=== PATIENT | female | born 1940 | race Two or more races ===

== ENCOUNTER 2022-11-13 10:45 | Inpatient (IN) | payer OTHER ==
[~2022-11-13] VITALS: Ht 172.7 cm; Wt 91.6 kg
[2022-11-13] MEDS ORDERED: dilTIAZem 25 MG/5 ML VIAL IV ONE (12:45)
[2022-11-13 12:52] LABS: Basophils # (auto) 0 10 ^3/uL (0-0.2); Basophils % (auto) 0.1 % (0.0-2.0); Eosinophils # (auto) 0 10 ^3/uL (0-0.8); Lymphocytes # (auto) 0.7 10 ^3/uL (0.4-5.4)
[2022-11-13 12:58] LABS: Hematocrit 36.2 % (36.0-46.0); Lymphocytes % (auto) 5.8 % (10.0-50.0); Mean Corpuscular Hemoglobin 27.2 pg (28.0-32.0); Mean Corpuscular Hgb Conc. 30.3 g/dL (32.0-36.0); Mean Corpuscular Volume 89.6 fL (80.0-100.0); Monocytes % (auto) 8.1 % (0.0-12.0); Neutrophils # (auto) 10.9 10 ^3/uL (1.6-8.6); Nucleated Red Blood Cells % 0.7 %; Red Blood Cells 4.04 10^6/uL (4.0-5.20); White Blood Cell 12.6 10^3/uL (4.4-10.8)
[2022-11-13] MEDS ORDERED: VANCOMYCIN 1GM/250ML 250 ML IV ONE (13:00)
[2022-11-13] MEDS ORDERED: LACTATED RINGER'S 1,000 ML IV ONE (13:00)
[2022-11-13] MEDS ORDERED: CEFEPIME 1GM/ 50ML 50 ML IV ONE (13:00)
[2022-11-13 13:03] LABS: Calcium 8.6 mg/dL (8.5-10.1); Potassium 4.9 mmol/L (3.5-5.1)
[2022-11-13 13:11] LABS: BUN/Creatinine Ratio 36.1 (10.0-20.0); Bilirubin, Total 1.5 mg/dL (0.2-1.0); Total Protein 6.4 g/dL (6.4-8.2)
[2022-11-13] MEDS ORDERED: ASPirin-EC 325mg tab PO ONE (13:15)
[2022-11-13 13:17] LABS: Red Cell Distribution Width 21.4 % (11.8-14.3)
[2022-11-13 13:53] LABS: Lactic Acid w/Reflex 2.9 mmol/L (0.4-2.0)
[2022-11-13] MEDS ORDERED: FUROSEMIDE 20 MG/2 ML VIAL IV ONE (15:00)
[2022-11-13] MEDS ORDERED: dilTIAZem 120MG ER CAP PO ONE ×2 (15:00→16:15)
[2022-11-13] MEDS ORDERED: IOHEXOL 350 MG/ML 100ML IJ ONE (15:05)
[2022-11-13] MEDS ORDERED: FUROSEMIDE 40 MG/4 ML VIAL IV ONE (15:30)
[2022-11-13] MEDS ORDERED: ENOXAPARIN SOD 100 MG/1 ML SYRINGE SC ONE (16:45)
[2022-11-13 17:15] LABS: Urine Bacteria MANY /hpf (None Seen); Urine Blood Negative /uL (Negative); Urine Mucus FEW (None Seen); Urine Specific Gravity 1.039 (1.001-1.035); Urine WBC 6 /hpf (0 - 5)
[2022-11-13] MEDS ORDERED: dilTIAZem 125mg/125ml BAG KIT 125 ML IV ONE (21:30)
[2022-11-13] MEDS ORDERED: HYDROcodone-ACET 5/325MG TAB PO PRN (21:30)
[2022-11-13] MEDS ORDERED: DOCUSATE SOD 100 MG CAP PO PRN (21:30)
[2022-11-13] MEDS ORDERED: VANCOMYCIN PER PHARMACY 0 MG IV SCH (21:30)
[2022-11-13] MEDS ORDERED: ACETAMINOPHEN 325 MG TAB PO PRN (21:30)
[2022-11-13] MEDS ORDERED: ONDANSETRON HCL 4 MG/2 ML VIAL IV PRN (21:30)
[2022-11-13] MEDS: SODIUM CHLOR 0.9% PF (SALINE LOCK) 10ML VIAL/SYR IV SCH (22:00)
[2022-11-13] MEDS: HEPARIN SODIUM (PORCINE) 5000 UNITS/ML 1ML VIAL SC SCH (23:40)
[2022-11-13] MEDS ORDERED: MORPHINE SULFATE INJ 2 MG/ml SYRG IV PRN (23:45)
[2022-11-13] MEDS ORDERED: NITROGLYCERIN 0.4 MG SL TAB SL PRN (23:45)
[2022-11-14] MEDS ORDERED: IBUPROFEN 400 MG TAB PO PRN (04:00)
[2022-11-14] MEDS ORDERED: APIX5TAB PO (04:20)
[2022-11-14] MEDS ORDERED: FUR20T PO (04:20)
[2022-11-14] MEDS ORDERED: CEPH500C PO (04:20)
[2022-11-14] MEDS ORDERED: HYDR-4072 PO (04:21)
[2022-11-14 05:00] VITALS: BP 98/65
[2022-11-14 05:47] LABS: Basophils # (auto) 0 10 ^3/uL (0-0.2); Basophils % (auto) 0.1 % (0.0-2.0); Eosinophils # (auto) 0 10 ^3/uL (0-0.8); Hemoglobin 10.6 g/dL (12.2-16.2); Lymphocytes # (auto) 0.4 10 ^3/uL (0.4-5.4); Lymphocytes % (auto) 2.5 % (10.0-50.0); Mean Corpuscular Hemoglobin 27.8 pg (28.0-32.0); Mean Corpuscular Hgb Conc. 31.1 g/dL (32.0-36.0); Mean Corpuscular Volume 89.4 fL (80.0-100.0); Monocytes # (auto) 0.9 10 ^3/uL (0-1.3); Monocytes % (auto) 5.4 % (0.0-12.0); Neutrophils # (auto) 14.7 10 ^3/uL (1.6-8.6); Nucleated Red Blood Cells % 0.4 %; White Blood Cell 15.9 10^3/uL (4.4-10.8)
[2022-11-14 06:01] LABS: Red Cell Distribution Width 20.8 % (11.8-14.3)
[2022-11-14 06:16] LABS: Albumin 1.6 g/dL (3.4-5.0)
[2022-11-14] MEDS: SODIUM CHLOR 0.9% PF (SALINE LOCK) 10ML VIAL/SYR IV SCH ×3 (06:19→22:14)
[2022-11-14] MEDS: HEPARIN SODIUM (PORCINE) 5000 UNITS/ML 1ML VIAL SC SCH (06:19)
[2022-11-14 06:29] LABS: BUN/Creatinine Ratio 40.2 (10.0-20.0); Bilirubin, Total 1.2 mg/dL (0.2-1.0); Total Protein 5.8 g/dL (6.4-8.2)
[2022-11-14] MEDS: cefTRIAXone 1GM/50ML D5W 50 ML IV SCH (08:35)
[2022-11-14 09:00] VITALS: BP 119/76
[2022-11-14] MEDS: MORPHINE SULFATE INJ 2 MG/ml SYRG IV PRN ×2 (09:34→16:30)
[2022-11-14] MEDS ORDERED: FUROSEMIDE 40 MG/4 ML VIAL IV SCH (10:00)
[2022-11-14] MEDS ORDERED: ASPirin 81 mg TAB PO SCH (10:00)
[2022-11-14] MEDS: VANCOMYCIN 1GM/250ML 250 ML IV SCH (10:56)
[2022-11-14] MEDS ORDERED: ENOXAPARIN SOD 80 MG/0.8ML SYRINGE SC ONE (12:46)
[2022-11-14 12:55] VITALS: BP 93/62
[2022-11-14] MEDS ORDERED: DIGOXIN (250MCG/ML) 2 ML AMPULE IV ONE (14:00)
[2022-11-14 17:00] VITALS: BP 121/74
[2022-11-14] MEDS: FUROSEMIDE 40 MG/4 ML VIAL IV SCH (17:21)
[2022-11-14 22:00] VITALS: BP 109/67
[2022-11-14] MEDS ORDERED: METOPROLOL TARTRATE 25 MG TAB PO SCH (22:00)
[2022-11-14] MEDS: AMIODARONE HCL 200 MG TAB PO SCH (22:04)
[2022-11-14] MEDS: ENOXAPARIN SOD 80 MG/0.8ML SYRINGE SC SCH (22:05)
[2022-11-15] VITALS (25 sets, daily range): BP systolic 82–116; BP diastolic 45–71
[2022-11-15] MEDS ORDERED: MIDODRINE HCL 10 MG TAB ONE (00:58)
[2022-11-15] MEDS ORDERED: MIDODRINE HCL 10 MG TAB PO ONE (01:00)
[2022-11-15] MEDS: VANCOMYCIN 1GM/250ML 250 ML IV SCH (05:00)
[2022-11-15 05:28] LABS: Basophils # (auto) 0 10 ^3/uL (0-0.2); Basophils % (auto) 0.1 % (0.0-2.0); Eosinophils # (auto) 0 10 ^3/uL (0-0.8); Hematocrit 36.7 % (36.0-46.0); Hemoglobin 11.7 g/dL (12.2-16.2); Lymphocytes # (auto) 0.3 10 ^3/uL (0.4-5.4); Lymphocytes % (auto) 4.8 % (10.0-50.0); Mean Corpuscular Hgb Conc. 31.9 g/dL (32.0-36.0); Mean Corpuscular Volume 87.6 fL (80.0-100.0); Monocytes # (auto) 0.2 10 ^3/uL (0-1.3); Neutrophils # (auto) 6.3 10 ^3/uL (1.6-8.6); Neutrophils % (auto) 92.1 % (37.0-80.0); Nucleated Red Blood Cells % 0.6 %; Red Blood Cells 4.19 10^6/uL (4.0-5.20); White Blood Cell 6.9 10^3/uL (4.4-10.8)
[2022-11-15] MEDS: MORPHINE SULFATE INJ 2 MG/ml SYRG IV PRN ×3 (05:28→20:45)
[2022-11-15 05:49] LABS: Calcium 8.4 mg/dL (8.5-10.1)
[2022-11-15 05:52] LABS: BUN/Creatinine Ratio 38.7 (10.0-20.0)
[2022-11-15] MEDS: SODIUM CHLOR 0.9% PF (SALINE LOCK) 10ML VIAL/SYR IV SCH ×3 (06:00→22:24)
[2022-11-15] MEDS: FUROSEMIDE 40 MG/4 ML VIAL IV SCH (06:00)
[2022-11-15 06:01] LABS: INR 1.48 (0.9-1.15); Partial Thromboplastin Time 38.4 sec (24.6-33.4)
[2022-11-15] MEDS: ENOXAPARIN SOD 80 MG/0.8ML SYRINGE SC SCH (09:19)
[2022-11-15] MEDS: cefTRIAXone 1GM/50ML D5W 50 ML IV SCH (09:19)
[2022-11-15] MEDS: AMIODARONE HCL 200 MG TAB PO SCH ×2 (09:20→22:00)
[2022-11-15] MEDS: PANTOPRAZOLE 40 MG TAB PO SCH ×2 (09:20→22:00)
[2022-11-15] MEDS ORDERED: HALOPERIDOL LACTATE 5 MG/ML INJ VIAL IM PRN (15:15)
[2022-11-15] MEDS: ENOXAPARIN SOD 100 MG/1 ML SYRINGE SC SCH (22:00)
[2022-11-16] VITALS (18 sets, daily range): BP systolic 89–124; BP diastolic 40–78
[2022-11-16] MEDS: MORPHINE SULFATE INJ 2 MG/ml SYRG IV PRN ×3 (02:35→20:58)
[2022-11-16 05:51] LABS: Hematocrit 34.6 % (36.0-46.0); Hemoglobin 10.8 g/dL (12.2-16.2); Mean Corpuscular Hemoglobin 27.4 pg (28.0-32.0); Mean Corpuscular Hgb Conc. 31.3 g/dL (32.0-36.0); Mean Corpuscular Volume 87.7 fL (80.0-100.0); Red Blood Cells 3.95 10^6/uL (4.0-5.20); White Blood Cell 14.8 10^3/uL (4.4-10.8)
[2022-11-16 05:57] LABS: INR 1.3 (0.9-1.15); Partial Thromboplastin Time 39.9 sec (24.6-33.4)
[2022-11-16] MEDS: SODIUM CHLOR 0.9% PF (SALINE LOCK) 10ML VIAL/SYR IV SCH ×3 (06:00→20:57)
[2022-11-16 06:22] LABS: Red Cell Distribution Width 21.3 % (11.8-14.3)
[2022-11-16 06:24] LABS: Basophils % (manual) 0 (0.0-2.0); Blast Cells 0; Eosinophils % (manual) 0 (0-7); Myelocytes % 0; Promyelocytes % 0; Reactive Lymphocytes 0
[2022-11-16 06:36] LABS: Potassium 4.3 mmol/L (3.5-5.1)
[2022-11-16 06:39] LABS: Calcium 8.3 mg/dL (8.5-10.1)
[2022-11-16] MEDS: PANTOPRAZOLE 40 MG TAB PO SCH ×2 (07:24→20:58)
[2022-11-16] MEDS: AMIODARONE HCL 200 MG TAB PO SCH ×2 (07:25→20:59)
[2022-11-16] MEDS: FUROSEMIDE 40 MG/4 ML VIAL IV SCH (07:25)
[2022-11-16] MEDS: cefTRIAXone 1GM/50ML D5W 50 ML IV SCH (07:26)
[2022-11-16] MEDS: ENOXAPARIN SOD 100 MG/1 ML SYRINGE SC SCH ×2 (07:26→21:00)
[2022-11-16 07:53] LABS: Band Neutrophils % (manual) 23; Lymphocytes % (manual) 3 (10.0-50.0); Metamyelocytes % 1; Monocytes % (manual) 2 (0-12)
[2022-11-16] MEDS: Pro-Stat SF 30ml Vanilla PO SCH (08:55)
[2022-11-16] MEDS: Juven Fruit Punch Powder PACKET 28.8gm PO SCH (08:55)
[2022-11-16] MEDS ORDERED: SODIUM CHLORIDE 0.9% 1,000 ML IV ONE (10:30)
[2022-11-16] MEDS ORDERED: SODIUM CHLORIDE 0.9% 500 ML IV ONE (10:30)
[2022-11-16] MEDS ORDERED: LACTULOSE 20Gm/30ML SOLN PO PRN (11:15)
[2022-11-16] MEDS: ACCU-CHEK COMFORT CURVE STRIP VI SCH ×2 (11:23→16:34)
[2022-11-16] MEDS: InsuLIN REG 1unit/0.01ml Soln (100units/ml) SC SCH ×2 (11:23→16:35)
[2022-11-16] MEDS ORDERED: DEXTROSE (50%) 50ML SYRG IV SCH (11:30)
[2022-11-16 12:26] LABS: Magnesium 2.5 mg/dL (1.6-2.6)
[2022-11-16 12:29] LABS: Phosphorus 1.4 mg/dL (2.5-4.90)
[2022-11-16 13:12] LABS: Urine Bacteria FEW /hpf (None Seen); Urine Blood 1+ /uL (Negative); Urine Budding Yeast OCCASIONAL /hpf (None Seen); Urine Hyaline Cast FEW /lpf (0 - 2); Urine Specific Gravity 1.022 (1.001-1.035); Urine WBC 13 /hpf (0 - 5)
[2022-11-16 13:27] LABS: Protein, Urine 138.3 mg/dL (0.0-11.9)
[2022-11-16] MEDS ORDERED: SODIUM PHOSPHATES 20 MEQ in SODIUM CHL 0.9% 100 ML IV ONE (16:15)
[2022-11-16] MEDS: AMINO ACID INFUSION IN D10W 1,000 ML IV NR (20:57)
[2022-11-16] MEDS: QUEtiapine FUMARATE 25 MG TAB PO SCH (20:58)
[2022-11-16] MEDS ORDERED: CLINIMIX PER PHARMACY 0 ML IV SCH (22:00)
[2022-11-17] VITALS (22 sets, daily range): BP systolic 73–114; BP diastolic 45–83
[2022-11-17 05:12] LABS: Basophils # (auto) 0 10 ^3/uL (0-0.2); Basophils % (auto) 0.1 % (0.0-2.0); Eosinophils # (auto) 0 10 ^3/uL (0-0.8); Lymphocytes # (auto) 0.4 10 ^3/uL (0.4-5.4); Neutrophils # (auto) 12.4 10 ^3/uL (1.6-8.6)
[2022-11-17 05:15] LABS: Hematocrit 35.1 % (36.0-46.0); Hemoglobin 10.8 g/dL (12.2-16.2); Lymphocytes % (auto) 3.1 % (10.0-50.0); Mean Corpuscular Hemoglobin 27.7 pg (28.0-32.0); Mean Corpuscular Hgb Conc. 30.8 g/dL (32.0-36.0); Monocytes # (auto) 0.3 10 ^3/uL (0-1.3); Monocytes % (auto) 2.4 % (0.0-12.0); Neutrophils % (auto) 94.4 % (37.0-80.0); Nucleated Red Blood Cells % 0.5 %; White Blood Cell 13.2 10^3/uL (4.4-10.8)
[2022-11-17 05:44] LABS: Chloride 110 mmol/L (98-107); Potassium 4.5 mmol/L (3.5-5.1); Sodium 139 mmol/L (136-145)
[2022-11-17 05:49] LABS: Albumin 1.3 g/dL (3.4-5.0); Anion Gap 12 (5-15); Blood Urea Nitrogen 63 mg/dL (7-18); Calcium 7.7 mg/dL (8.5-10.1); Carbon Dioxide 17 mmol/L (21-32); GFR African American 38 mL/min; GFR Non-African American 32 mL/min; Glucose 100 mg/dL (74-106); Magnesium 2.5 mg/dL (1.6-2.6)
[2022-11-17 05:52] LABS: Alanine Aminotransferase 255 U/L (13-56); Alkaline Phosphatase 136 U/L (45-117); Aspartate Aminotransferase 76 U/L (15-37); Bilirubin, Total 1.8 mg/dL (0.2-1.0); Phosphorus 5.7 mg/dL (2.5-4.90); Total Protein 4.8 g/dL (6.4-8.2)
[2022-11-17] MEDS: SODIUM CHLOR 0.9% PF (SALINE LOCK) 10ML VIAL/SYR IV SCH ×3 (06:00→22:00)
[2022-11-17] MEDS: InsuLIN REG 1unit/0.01ml Soln (100units/ml) SC SCH ×4 (06:00→18:00)
[2022-11-17] MEDS: ACCU-CHEK COMFORT CURVE STRIP VI SCH ×4 (06:00→18:00)
[2022-11-17 06:31] LABS: Red Cell Distribution Width 20.8 % (11.8-14.3)
[2022-11-17 06:39] LABS: Uric Acid 8.9 mg/dL (2.6-6.0)
[2022-11-17] MEDS: cefTRIAXone 1GM/50ML D5W 50 ML IV SCH (09:34)
[2022-11-17] MEDS: PANTOPRAZOLE 40 MG TAB PO SCH ×2 (10:00→22:00)
[2022-11-17] MEDS: FUROSEMIDE 40 MG/4 ML VIAL IV SCH (10:00)
[2022-11-17] MEDS: Juven Fruit Punch Powder PACKET 28.8gm PO SCH (10:00)
[2022-11-17] MEDS: Pro-Stat SF 30ml Vanilla PO SCH (10:00)
[2022-11-17] MEDS: AMIODARONE HCL 200 MG TAB PO SCH ×2 (10:00→22:00)
[2022-11-17] MEDS: ENOXAPARIN SOD 100 MG/1 ML SYRINGE SC SCH (11:09)
[2022-11-17] MEDS ORDERED: DOXY-332 PO (11:17)
[2022-11-17 11:58] LABS: Hepatitis A Total Antibody Negative (Negative)
[2022-11-17 12:04] LABS: Hepatitis B Surface Antibody Negative (Negative)
[2022-11-17] MEDS: DOXYCYCLINE 100MG/250ML 250 ML IV SCH (12:44)
[2022-11-17 13:08] LABS: Hepatitis C Antibody Negative (Negative)
[2022-11-17] MEDS ORDERED: KETOROLAC TROMETH 30 MG/ML 1ML VIAL IV PRN (16:45)
[2022-11-17] MEDS: AMINO ACID INFUSION IN D10W 1,000 ML IV NR (20:52)
[2022-11-17] MEDS: QUEtiapine FUMARATE 25 MG TAB PO SCH (22:00)
[2022-11-18] VITALS: BP 76/47
[2022-11-18] MEDS: InsuLIN REG 1unit/0.01ml Soln (100units/ml) SC SCH
[2022-11-18] MEDS: ACCU-CHEK COMFORT CURVE STRIP VI SCH
[2022-11-18 01:00] VITALS: BP 81/48
[2022-11-18] MEDS: DOXYCYCLINE 100MG/250ML 250 ML IV SCH (01:11)
[2022-11-18 02:00] VITALS: BP 80/50
[2022-11-18 03:00] VITALS: BP 71/40
[2022-11-18 03:30] VITALS: BP 71/37
== END 2022-11-18 07:50 | DRG 299 ==
LOC: ER 10:45 → EDBD 10:45 → TELE 23:46 → TELE-EAST 11-14 03:10 → ICU CENTRL 11-15 02:02 → DOU IN ICU 11-15 02:03 → ICU CENTRL 11-15 02:17 → DOU IN ICU 11-17 02:08
PROVIDERS: ADMIT Nurse Practitioner Family; ATTEND Hospitalist
PROC: 05HB33Z Insertion of Infusion Device into Right Basilic Vein, Percutaneous Approach (ICD-10-PCS; principal; 2022-11-13)
PROC: B54MZZA Ultrasonography of Right Upper Extremity Veins, Guidance (ICD-10-PCS; 2022-11-13)
DX: I82.403 Acute embolism and thrombosis of unspecified deep veins of lower extremity, bilateral (principal); G92.8 Other toxic encephalopathy; L89.153 Pressure ulcer of sacral region, stage 3; I26.94 Multiple subsegmental thrombotic pulmonary emboli without acute cor pulmonale; J18.9 Pneumonia, unspecified organism; J96.01 Acute respiratory failure with hypoxia; I50.23 Acute on chronic systolic (congestive) heart failure; N17.0 Acute kidney failure with tubular necrosis; N39.0 Urinary tract infection, site not specified; I48.92 Unspecified atrial flutter; I42.9 Cardiomyopathy, unspecified; R17 Unspecified jaundice; I13.0 Hypertensive heart and chronic kidney disease with heart failure and stage 1 through stage 4 chronic kidney disease, or unspecified chronic kidney disease; E87.6 Hypokalemia; D69.6 Thrombocytopenia, unspecified; I25.10 Atherosclerotic heart disease of native coronary artery without angina pectoris; Z66 Do not resuscitate; S41.002A Unspecified open wound of left shoulder, initial encounter; X58.XXXA Exposure to other specified factors, initial encounter; Z20.822 Contact with and (suspected) exposure to COVID-19; N18.32 Chronic kidney disease, stage 3b; I48.91 Unspecified atrial fibrillation; Z79.01 Long term (current) use of anticoagulants; Z51.5 Encounter for palliative care; Y93.89 Activity, other specified; Y92.89 Other specified places as the place of occurrence of the external cause; Y99.8 Other external cause status; Z74.01 Bed confinement status; Z79.899 Other long term (current) drug therapy; L89.629 Pressure ulcer of left heel, unspecified stage
CPT/HCPCS: 36415; 36600; 70450; 71045; 71260; 73030; 74177; 76705; 80048; 80053; 81001; 82140; 82565; 82570; 82805; 82962; 83605; 83735; 83880; 84100; 84156; 84300; 84439; 84443; 84484; 84550; 85007; 85025; 85027; 85379; 85610; 85730; 86704; 86706; 86708; 86803; 87040; 87077; 87081; 87086; 87186; 87205; 87340; 87426; 93005; 93306; 93970; 96365; 96368; 96375; 99291; G0378; J0696; J1885; J3490